=== PATIENT | female | born 1940 | race Caucasian/White ===

== ENCOUNTER 2017-01-19 20:39 | Emergency (ER) | payer MEDICARE, OTHER ==
[~2017-01-19] VITALS: Ht 175.3 cm; Wt 108.8 kg
[~2017-01-19 20:39] MED LIST: ALDACTONE25 MG PO; ASPIRIN325 MG PO; BETAPACE80 MG PO; CARDIZEM SR120 MG PO; COLACE100 MG PO; CYMBALTA30 MG PO; DEMADEX20 MG PO; HALFPRIN81 MG PO; K-TAB ER20 MEQ PO; MOBIC7.5 MG PO; NORCO 325-5 MG1 TAB PO; PRILOSEC40 MG PO; SOTALOL80 MG PO; WELCHOL625 MG PO; [UNRECOGNIZED DRUG - OTHER] PO
[2017-01-20] MEDS ORDERED: CALTRATE 600 WI1 TAB PO (03:34)
[2017-01-20] MEDS ORDERED: ZYLOPRIM300 MG PO (03:35)
[2017-01-20] MEDS ORDERED: ULORIC40 MG PO (03:35)
== END 2017-01-19 23:45 | disposition short-term general hospital (02) ==
LOC: ER 20:39
DX: I48.91 Unspecified atrial fibrillation (principal); R00.2 Palpitations; I10 Essential (primary) hypertension; E78.5 Hyperlipidemia, unspecified; K21.9 Gastro-esophageal reflux disease without esophagitis; I25.10 Atherosclerotic heart disease of native coronary artery without angina pectoris; Z88.2 Allergy status to sulfonamides; Z79.82 Long term (current) use of aspirin; Z79.899 Other long term (current) drug therapy; Z98.890 Other specified postprocedural states

== ENCOUNTER → 2017-01-24 | Outpatient (CLI) | payer MEDICARE, OTHER ==
[~2017-01-24] MED LIST changes: +CALTRATE 600 WI1 TAB PO; +ULORIC40 MG PO; +ZYLOPRIM300 MG PO
== END | disposition short-term general hospital (02) ==
LOC: CLCARD 11:05
DX: I48.0 Paroxysmal atrial fibrillation (principal); R06.09 Other forms of dyspnea; R00.1 Bradycardia, unspecified; R94.31 Abnormal electrocardiogram [ECG] [EKG]; Z95.0 Presence of cardiac pacemaker; Z98.890 Other specified postprocedural states

== ENCOUNTER → 2017-02-14 | Outpatient (CLI) | payer MEDICARE, OTHER | END | disposition short-term general hospital (02) | LOC: CLCARD 09:32 | DX: I48.0 Paroxysmal atrial fibrillation (principal); R06.09 Other forms of dyspnea; R00.1 Bradycardia, unspecified; Z95.0 Presence of cardiac pacemaker; Z79.899 Other long term (current) drug therapy ==